=== PATIENT | female | born 1980 | race Caucasian/White ===

== ENCOUNTER 2018-02-05 09:35 | Inpatient (IN) | payer OTHER ==
[~2018-02-05 09:35] MED LIST: OXYTOCIN 30 UNITS/LR 500 ML BAG IV
[2018-02-05] MEDS: LACTATED RINGER'S 1,000 ML IV ×2 (10:51→17:04)
[2018-02-05] MEDS ORDERED: CARBOPROST 250 MCG INJ IM ×2 (11:00→17:30)
[2018-02-05] MEDS ORDERED: MISOPROSTOL 200 MCG TAB PR ×2 (11:00→17:30)
[2018-02-05] MEDS ORDERED: OXYTOCIN 30 UNITS/LR 500 ML IV ×3 (11:00→17:30)
[2018-02-05] MEDS ORDERED: METHYLERGONOVINE 0.2 MG INJ IM (11:00)
[2018-02-05 11:01] LABS: ADD MAN DIFF? NO
[2018-02-05 11:02] LABS: WHITE BLOOD COUNT 12.8 10^3/ul (4.8-10.8)
[2018-02-05 11:02] LABS: BASOPHIL # 0.1 10^3/ul (0.0-0.1); BASOPHILS % 0.7 % (0.0-2.0); EOSINOPHILS # 0.3 10^3/ul (0.0-0.5); EOSINOPHILS % 2.3 % (0.0-7.0); HEMATOCRIT 37.4 % (37.0-47.0); HEMOGLOBIN 12.7 g/dl (12.0-16.0); LYMPHOCYTES # 1.9 10^3/ul (0.8-2.9); LYMPHOCYTES % 14.4 % (15.0-51.0); MEAN CORPUSCULAR HEMOGLOBIN 31.8 pg (29.0-33.0); MEAN CORPUSCULAR VOLUME 93.7 fl (82.0-101.0); MEAN PLATELET VOLUME 10.2 fl (7.4-10.4); MONOCYTE # 0.9 10^3/ul (0.3-0.9); MONOCYTES % 7.1 % (0.0-11.0); NEUTROPHIL # 9.4 10^3/ul (1.6-7.5); NEUTROPHILS % 73.5 % (39.0-77.0); PLATELET COUNT 257 10^3/UL (140-415); RED BLOOD COUNT 3.99 10^6/ul (4.20-5.40); RED CELL DISTRIBUTION WIDTH 11.9 % (11.5-14.5)
[2018-02-05 11:26] LABS: INR 0.81; PROTIME 11.2 Sec (11.9-14.9); PT RATIO 0.9
[2018-02-05 11:27] LABS: PARTIAL THROMBOPLASTIN TIME 28.4 Sec (23.0-35.0)
[2018-02-05 12:05] LABS: HEPATITIS B SURFACE ANTIGEN NEGATIVE (NEGATIVE)
[2018-02-05] MEDS ORDERED: ONDANSETRON 4 MG INJ (13:06)
[2018-02-05] MEDS ORDERED: OXYTOCIN 10 UNIT INJ (13:06)
[2018-02-05] MEDS ORDERED: morphine SULFATE/PF (10 MG/10 ML) INJ (13:06)
[2018-02-05] MEDS ORDERED: PHENYLephrine (100 MCG/ML) 5ML SYG ×2 (13:06→13:34)
[2018-02-05] MEDS ORDERED: ONDANSETRON 4 MG INJ IV (15:00)
[2018-02-05] MEDS ORDERED: DIPHENHYDRAMINE 50 MG INJ IV (15:00)
[2018-02-05] MEDS ORDERED: NALOXONE (0.4 MG/ML) INJ IV (15:00)
[2018-02-05] MEDS: CEFAZOLIN 2 GM/50 ML (PMX) 50 ML IV (15:05)
[2018-02-05] MEDS: OXYTOCIN 30 UNITS/LR 500 ML IV ×3 (15:12→23:45)
[2018-02-05] MEDS: KETOROLAC 30 MG INJ IV (15:50)
[2018-02-05] MEDS: morphine 2 MG INJ IV ×2 (16:13→21:12)
[2018-02-05] MEDS ORDERED: CLINDAMYCIN 900 MG/D5W (PMX) 50 ML IV (17:30)
[2018-02-05] MEDS ORDERED: OXYCODONE/ACETAMINOPHEN (5/325) TAB PO ×2 (17:30)
[2018-02-05] MEDS ORDERED: LANOLIN 7 GM TUBE TOP (17:30)
[2018-02-05] MEDS ORDERED: CEFAZOLIN 2 GM/50 ML (PMX) 50 ML IV (17:30)
[2018-02-05 19:28] LABS: RAPID PLASMA REAGIN NONREACTIVE (NR)
[2018-02-05] MEDS ORDERED: CEFAZOLIN 1 GM/50 ML (PMX) 50 ML IVPB (20:00)
[2018-02-05] MEDS: CEFAZOLIN 1 GM/50 ML (PMX) 50 ML IVPB (21:37)
[2018-02-06] MEDS: METHYLERGONOVINE 0.2 MG INJ IM (01:10)
[2018-02-06] MEDS: morphine 2 MG INJ IV ×3 (02:00→11:55)
[2018-02-06] MEDS: LACTATED RINGER'S 1,000 ML IV ×3 (04:15→17:04)
[2018-02-06 07:59] LABS: ADD MAN DIFF? NO
[2018-02-06 08:03] LABS: BASOPHIL # 0.1 10^3/ul (0.0-0.1); BASOPHILS % 0.4 % (0.0-2.0); EOSINOPHILS # 0.2 10^3/ul (0.0-0.5); EOSINOPHILS % 1.5 % (0.0-7.0); HEMOGLOBIN 10.7 g/dl (12.0-16.0); LYMPHOCYTES # 1.3 10^3/ul (0.8-2.9); LYMPHOCYTES % 11.4 % (15.0-51.0); MEAN CORPUSCULAR HEMOGLOBIN 31.7 pg (29.0-33.0); MEAN CORPUSCULAR HGB CONC 33.4 g/dl (32.0-37.0); MEAN CORPUSCULAR VOLUME 94.7 fl (82.0-101.0); MEAN PLATELET VOLUME 10.2 fl (7.4-10.4); MONOCYTE # 0.9 10^3/ul (0.3-0.9); MONOCYTES % 7.6 % (0.0-11.0); NEUTROPHIL # 8.7 10^3/ul (1.6-7.5); PLATELET COUNT 209 10^3/UL (140-415); RED BLOOD COUNT 3.38 10^6/ul (4.20-5.40)
[2018-02-06 08:03] LABS: WHITE BLOOD COUNT 11.2 10^3/ul (4.8-10.8)
[2018-02-06] MEDS: PRENATAL VITAMIN PO (08:25)
[2018-02-06] MEDS: SENNA/DOCUSATE NA (8.6MG/50MG) TAB PO ×2 (08:25→20:08)
[2018-02-06] MEDS: IBUPROFEN 600 MG TAB PO ×3 (14:03→23:31)
[2018-02-06] MEDS ORDERED: IBUPROFEN 600 MG TAB PO (18:00)
[2018-02-06] MEDS: HYDROCODONE/APAP (5/325) TAB PO (20:08)
[2018-02-07] MEDS: LACTATED RINGER'S 1,000 ML IV ×3 (01:04→17:04)
[2018-02-07] MEDS: HYDROCODONE/APAP (5/325) TAB PO ×4 (01:50→19:36)
[2018-02-07] MEDS: IBUPROFEN 600 MG TAB PO ×3 (05:39→17:43)
[2018-02-07] MEDS: SENNA/DOCUSATE NA (8.6MG/50MG) TAB PO ×2 (08:27→21:04)
[2018-02-07] MEDS: PRENATAL VITAMIN PO (08:28)
[2018-02-07] MEDS: FERROUS GLUCONATE (EC) 325 MG TAB PO (08:28)
[2018-02-08] MEDS: IBUPROFEN 600 MG TAB PO ×3 (00:05→12:53)
[2018-02-08] MEDS: HYDROCODONE/APAP (5/325) TAB PO ×2 (03:47→10:59)
[2018-02-08] MEDS: DIPHTH/TET/ACEL PERTUSS (ADULT) 0.5 ML VIAL IM* (09:00)
[2018-02-08] MEDS: PRENATAL VITAMIN PO (09:41)
[2018-02-08] MEDS: FERROUS GLUCONATE (EC) 325 MG TAB PO (09:41)
[2018-02-08] MEDS: SENNA/DOCUSATE NA (8.6MG/50MG) TAB PO (09:41)
[2018-02-08] MEDS: NA PHOSPHATE/BIPHOS 133 ML ENEMA PR (10:59)
== END 2018-02-08 13:45 | disposition home or self-care (01) | DRG 785 ==
LOC: L-D 09:35 → PP1 17:05
PROVIDERS: Obstetrics & Gynecology
PROC: 10D00Z1 Extraction of Products of Conception, Low, Open Approach (ICD-10-PCS; principal; 2018-02-05 12:30)
PROC: 0UB70ZZ Excision of Bilateral Fallopian Tubes, Open Approach (ICD-10-PCS; 2018-02-05 12:30)
DX: O34.211 Maternal care for low transverse scar from previous cesarean delivery (principal); Z3A.39 39 weeks gestation of pregnancy; Z37.0 Single live birth; Z30.2 Encounter for sterilization
CPT/HCPCS: 85025; 85610; 85730; 86592; 86850; 86900; 86901; 87340; 88302; 90715; 99464